=== PATIENT | male | born 2000 | race Caucasian/White ===

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

== ENCOUNTER 2025-02-01 00:17 | Inpatient (IN) | payer SELFPAY ==
[2025-02-01 00:19] VITALS: BP 127/71; PULSE 60; RESP 18; TEMP 36.9; O2SAT 100; BMI 18.1
[2025-02-01 00:54] LABS: Basophils # 0.1 10^3/uL (0.0-0.1); Basophils % 0.6 %; Eosinophils # 0.1 10^3/uL (0.0-0.8); Eosinophils % 1.6 %; Hematocrit 47.2 % (37-53); Lymphocytes # 2.1 10^3/uL (0.8-4.8); Lymphocytes % 25.8 %; Mean Corpuscular HGB Conc 34.1 g/dL (30-55); Mean Corpuscular Hemoglobin 28.8 pg (27-33); Mean Corpuscular Volume 84.3 fl (82-101); Mean Platelet Volume 11.4 fL (7.4-10.4); Monocytes # 0.6 10^3/uL (0.2-0.9); Monocytes % 6.7 %; Neutrophils # 5.34 10^3/uL (1.8-7.7); Neutrophils % 65.1 %; Nucleated Red Blood Cells % 0 %; Platelet Count 241 10^3/cmm (157-399); Red Cell Distribution Width 12.4 % (12.1-15.1); White Blood Count 8.21 10^3/uL (3.29-11.43)
[2025-02-01 00:58] LABS: Bilirubin Urine Negative (Negative); Blood Urine Negative (Negative); Glucose Urine UA Negative (Normal); Ketones Urine Negative (Negative); Leukocyte Esterase Urine Negative (Negative); Nitrate Urine Negative (Negative); Protein Urine Negative (Negative); Specific Gravity, Urine 1.017 (1.005-1.030); Urine Appearance Clear (CLEAR); Urine Color Yellow (Yellow); pH Urine 6.5 (5-7)
[2025-02-01 01:03] LABS: Add Urine Microscopic? YES; Bacteria Urine None Seen /hpf; Hyaline Casts Urine 0-4 /lpf; RBC Urine 0-2 /hpf (0-2); Squamous Epithelial Cell Urine 0-5 /hpf (0-5); WBC Urine 0-5 /hpf (0-5)
[2025-02-01 01:05] LABS: Amphetamines Screen Urine Negative (Negative); Barbiturates Screen Urine Negative (Negative); Benzodiazepines Screen Urine Negative (Negative); Cocaine Screen Urine Negative (Negative); Opiate Screen Urine Negative (Negative); PCP Screen Urine Negative (Negative); THC Screen Urine Negative (Negative)
[2025-02-01 01:09] LABS: Alanine Aminotransferase 17 U/L (0-41); Albumin Level 4.8 g/dL (3.5-5.2); Alkaline Phosphatase 76 U/L (40-130); Aspartate Amino Transferase 20 U/L (0-40); Blood Urea Nitrogen 9 mg/dL (6-20); Calcium 9.3 mg/dL (8.5-10.5); Carbon Dioxide 28 mmol/L (22-29); Chloride 105 mmol/L (98-107); Creatinine Clr Calc Pharmacy 87.8549; Glomerular Filtration Rate 83.7 mL/min (90-130); Glucose 109 mg/dL (65-115); Osmolality Calculated 297 mOsm/kg (285-295); Sodium 144 mmol/L (136-145); Total Bilirubin 0.3 mg/dL (0.15-1.2); Total Protein 7.8 g/dL (6.6-8.7)
[2025-02-01 01:10] LABS: Acetaminophen < 5.0 ug/mL (10-30); Anion Gap 15.5 (5-19); Potassium 4.5 mmol/L (3.5-5.1); Salicylate < 0.3 mg/dL (3-10)
--- NOTE | 2025-02-01 02:37 | PC.NURSE ---
This nurse spoke to Lyubov Ann, Patients Mom @[phone]. Per pt mom, pt made threats to kill himself tonight around [id number]. Pt mom reports pt has not slept in days. Pt mom states he has hx of attempted suicides and previous admissions to Psych.
--- NOTE | 2025-02-01 03:07 | PC.NURSE ---
96 Hour Involuntary Hold Patient Rights have been reviewed with the patient and questions have been answered to his satisfaction. Used Car Sales Supervisor Michael was present at bedside at the time of presentation of Rights.
--- NOTE | 2025-02-01 03:37 | W.ED.PSYCHS ---
HPI - Psych General: Chief Complaint: Psychiatric Symptoms Stated Complaint: SI/HI Time Seen by Provider: 02/01/25 00:21 History of Present Illness: Patient is a generally well-appearing 24-year-old male who was brought to the emergency department by EMS after having a confrontation with his mother and then driving off saying he was going to kill himself. He found himself at the police station who asked EMS to bring him to the emergency department. He has a history of suicidal attempts with overdose, self harm with cutting, and carries multiple diagnoses including major depressive disorder, bipolar, and also schizophrenia. He denies active hallucinations. Related Data Home Medications ?Medication ?Instructions ?Recorded ?Confirmed ibuprofen 800 mg tablet 800 mg PO TID PRN Pain (Scale 02/14/21 02/01/25 Score 4-6) Previous Rx's ?Medication ?Instructions ?Recorded fluconazole 200 mg tablet 200 mg PO DAILY 7 days #7 tabs 09/11/20 (Diflucan) bupropion HCl 150 mg 24 hr tablet, 150 mg PO QAM #30 tabs 02/14/21 extended release (Wellbutrin XL) Allergies Allergy/AdvReac Type Severity Reaction Status Date / Time No Known Allergies Allergy Verified 02/01/25 00:41 [facility] ED [facility]: Medical History ADHD (attention deficit hyperactivity disorder) has been on Adderall in the past History of suicide attempt Major depression in remission Major depression, recurrent, chronic OCD (obsessive compulsive disorder) Surgical History No history of previous surgery Social History Additional social history: Patient smokes cigarettes, marijuana and drink alcohol at a alliance party last week though indicates this is not a regular occurrence for him Household members: family Physical Exam Const: COMMON NORMALS: no acute distress, patient oriented x3 and alert HENMT: COMMON NORMALS: normocephalic and atraumatic HEAD & SCALP: normocephalic and atraumatic Eye: COMMON NORMALS: Equal, round and reactive pupils present, EOMs intact bilaterally and no scleral icterus PUPIL: Yes Equal, round and reactive pupils present Resp: COMMON NORMALS: normal respiratory effort and No retractions Cardio: COMMON NORMALS: regular rate, regular rhythm and No murmurs present (Cardio) RATE: regular rate RHYTHM: regular rhythm GI: COMMON NORMALS: Normal to inspection, nondistended, normoactive bowel sounds present, Soft to palpation and non-tender PALPATION: Yes Soft to palpation Neuro: COMMON NORMALS: patient oriented x3 SENSORIUM/ORIENTATION: Yes alert Psych: OTHER: Admits making suicidal statements earlier, denies active plans to harm himself or anyone else. Denies active hallucinations. Admits to feeling depressed and not sleeping. Skin: COMMON NORMALS: no rashes or lesions noted GENERAL SKIN EXAM: no rashes or lesions noted Course Vital Signs: Vital signs: Vital Signs Temperature 98.5 F 02/01/25 00:19 Pulse Rate 60 02/01/25 00:19 Respiratory Rate 18 02/01/25 00:19 Blood Pressure 127/71 02/01/25 00:19 Pulse Oximetry 100 02/01/25 00:19 Oxygen Delivery Me thod Room Air 02/01/25 00:19 MDM - Psych Medical Decision Making In summary, patient is a 24-year-old male with a long psychiatric history is seen for what appears to be an exacerbation of major depressive disorder. He has not slept in several days raising concern for possible manic episode. I spoke with the on-call psychiatrist who graciously agrees to admit the patient. He is medically cleared at this point. He will be taken to the psychiatric floor in stable condition. Lab Data 02/01/25 00:32 02/01/25 00:32 Laboratory Results WBC 8.21 10^3/uL (3.29-11.43) 02/01/25 00:32 RBC 5.60 10^6/uL (3.85-5.65) 02/01/25 00:32 Hgb 16.10 g/dL (11.27-16.99) 02/01/25 00:32 Hct 47.2 % (37-53) 02/01/25 00:32 MCV 84.3 fl (82-101) 02/01/25 00:32 MCH 28.8 pg (27-33) 02/01/25 00:32 MCHC 34.1 g/dL (30-55) 02/01/25 00:32 RDW 12.4 % (12.1-15.1) 02/01/25 00:32 Plt Count 241 10^3/cmm (157-399) 02/01/25 00:32 MPV 11.4 fL (7.4-10.4) H 02/01/25 00:32 Neut % (Auto) 65.1 % 02/01/25 00:32 Lymph % (Auto) 25.8 % 02/01/25 00:32 [place] % (Auto) 6.7 % 02/01/25 00:32 Eos % (Auto) 1.6 % 02/01/25 00:32 Baso % (Auto) 0.6 % 02/01/25 00:32 Neut # (Auto) 5.34 10^3/uL (1.8-7.7) 02/01/25 00:32 Lymph # (Auto) 2.1 10^3/uL (0.8-4.8) 02/01/25 00:32 [place] # (Auto) 0.6 10^3/uL (0.2-0.9) 02/01/25 00:32 Eos # (Auto) 0.1 10^3/uL (0.0-0.8) 02/01/25 00:32 Baso # (Auto) 0.1 10^3/uL (0.0-0.1) 02/01/25 00:32 Nucleated RBC % (auto) 0 % 02/01/25 00: Nucleated RBCs # 0.0 /100WBC 02/01/25 00:32 Sodium 144 mmol/L (136-145) 02/01/25 00:32 Potassium 4.5 mmol/L (3.5-5.1) 02/01/25 00:32 Chloride 105 mmol/L (98-107) 02/01/25 00:32 Carbon Dioxide 28 mmol/L (22-29) 02/01/25 00:32 Anion Gap 15.5 (5-19) 02/01/25 00:32 BUN 9 mg/dL (6-20) 02/01/25 00:32 Creatinine 1.1 mg/dL (0.7-1.2) 02/01/25 00:32 GFR Calculation 83.7 mL/min (90-130) L 02/01/25 00:32 Glucose 109 mg/dL (65-115) 02/01/25 00:32 Calculated Osmolality 297 mOsm/kg (285-295) H 02/01/25 00:32 Calcium 9.3 mg/dL (8.5-10.5) 02/01/25 00:32 Total Bilirubin 0.3 mg/dL (0.15-1.2) 02/01/25 00:32 AST 20 U/L (0-40) 02/01/25: ALT 17 U/L (0-41) 02/01/25 00: Alkaline Phosphatase 76 U/L (40-130) 02/01/25 00:32 Total Protein 7.8 g/dL (6.6-8.7) 02/01/25 00: Albumin 4.8 g/dL (3.5-5.2) 02/01/25 00: Globulin 3.0 g/dL (1.3-4.6) 02/01/25 00:32 Urine Color Yellow (Yellow) 02/01/25 00: Urine Appearance Clear (CLEAR) 02/01/25 00: Urine pH 6.5 (5-7) 02/01/25 00: Ur Specific [place] 1.017 (1.005-1.030) 02/01/25 00: Urine Protein Negative (Negative) 02/01/25 00: Urine Glucose (UA) Negative (Normal) 02/01/25 00: Urine Ketones Negative (Negative) 02/01/25 00: Urine Blood Negative (Negative) 02/01/25 00: Urine Nitrate Negative (Negative) 02/01/25 00: Urine Bilirubin Negative (Negative) 02/01/25 00: Urine Urobilinogen 1.0 mg/dL (Negative) 02/01/25 00: Ur Leukocyte Esterase Negative (Negative) 02/01/25 00: Urine RBC 0-2 /hpf (0-2) 02/01/25 00: Urine WBC 0-5 /hpf (0-5) 02/01/25 00: Ur Squamous Epith Cells 0-5 /hpf (0-5) 02/01/25 00: Amorphous Sediment Not Reportable 02/01/25 00: Urine Bacteria None seen /hpf (NONE) 02/01/25 00: Hyaline Casts 0-4 /lpf H 02/01/25 00:33 Salicylates < 0.3 mg/dL (3-10) L 02/01/25 00:32 Urine Opiates Screen Negative ng/mL (Negative) 02/01/25 00:33 Acetaminophen < 5.0 ug/mL (10-30) L 02/01/25 00:32 Ur Barbiturates Screen Negative ng/mL (Negative) 02/01/25 00:33 Ur Phencyclidine Scrn Negative ng/mL (Negative) 02/01/25 00:33 Ur Amphetamines Screen Negative ng/mL (Negative) 02/01/25 00:33 U Benzodiazepines Scrn Negative ng/mL (Negative) 02/01/25 00:33 Urine Cocaine Screen Negative ng/mL (Negative) 02/01/25 00:33 U Marijuana (THC) Screen Negative ng/mL (Negative) 02/01/25 00:33 No radiology studies performed this visit Discharge Plan Discharge Patient Disposition: Admitted As Inpatient Admit Provider: Chema Meza Clinical Impression: Major depression, recurrent, chronic, Suicidal ideation, Bipolar disorder Condition: Stable Coding Level of Care Code ED Party Plan Dealer for Delmy Whitman
[2025-02-01 03:43] VITALS: BP 130/87; PULSE 64; RESP 18; TEMP 36.4; O2SAT 100
--- NOTE | 2025-02-01 04:36 | PC.ADMIT ---
[address] Admission Note: The patient,Abiodun Ann,24 y/o, was given written information regarding hospital policies, unit procedures and contact persons. Patient's smoking status: . Vital Signs - 8 hr 02/01/25 00:19 02/01/25 03:47 Temperature 98.5 F Pulse Rate 60 Respiratory Rate 18 Blood Pressure 127/71 Pulse Oximetry 100 Oxygen Delivery Method Room Air Room Air Pt. and his mother got into an arguement and his mother was in face he pushed her away, went to police station for someone to talk to and they brought him to the ER. Pt. is placed on a 96 hr hold informed ER staff he had thoughts of self harm. Pt. stated to signee he experiences auditory and visual hallucinations, admits to smoking THC to stop the hallucinations. Pt. is calm and cooperative at this time.
[2025-02-01 06:00] VITALS: BP 130/87; PULSE 64; RESP 18; TEMP 36.4; O2SAT 100
--- NOTE | 2025-02-01 08:18 | P.NPUHP_ITS ---
Providers/Chief Complaint 2 Admitting Physician: Chema Meza MD Chief Complaint: SI/HI HPI NPU History of Present Illness Abiodun Ann is a 24 year old male who presented on 02/01/2025 to the emergency department at [facility] by EMS after he had an argument with his mother that led to the patient making a statement stating he was going to kill himself. Patient was admitted to the neuropsychiatric unit involuntarily for further evaluation and treatment. The patient had reported that he had not been feeling depressed but was merely sleep deprived. He had described that he had had argument with his mother about these 2 dogs living in the house that continued to bark and the patient had stated that he was desperately trying to go to sleep. He reports that he has not been in treatment for depression in over 4 years. Patient reported some occasional periods of sadness but reports no persistent sadness over the last few weeks. The patient had denied any manic symptoms. He denied any feelings of hopelessness or worthlessness. He had endorsed having past episodes of depression in the past but reports currently his mood has been good and that he has not been thinking about hurting himself until yesterday. He did acknowledge a history of self-injurious behavior. He reports that he has been hearing a voice in his head for years but describes it is not being excessively loud or overly distracting. He reports that it has never commanded him to cause harm to himself. He denies any current problems associated with obsessive-compulsive disorder or panic attacks. He had reported that he had a prior history of having struggles with maintaining worry. He denies any drug or alcohol use at this time. The patient's urine drug screen was negative for all substances and alcohol. He reports no problems with appetite. He reports no change in energy or concentration. He reports that he works from 6 AM to 10 PM at 2 different jobs and states that this is led him to be chronically sleep deprived. He had reported no symptoms supportive of ADHD currently or PTSD. Inpatient psychiatric history: He reports no previous inpatient psychiatric hospitalizations. Outpatient psychiatric history: The patient reports no current psychotherapy or medication management but reported an extended history of treatment through the behavioral health clinic in [facility] beginning as early as the age of 12. Previous records indicate a prior diagnosis of ADHD, generalized anxiety disorder, and major depressive disorder. Previous medication trials included Adderall XR, Prozac, Wellbutrin XL, he had reported a past history of self- injurious behavior including cutting but reports no self-injurious behavior in many years. Substance abuse history: He reports occasional alcohol use but otherwise does not endorse any drugs. He has no history of drug or alcohol treatment. Medical history: None Surgical history: None Allergies: No known drug allergies Medications: None Legal history: None history: None Family psychiatric history: There is a history of bipolar disorder and the patient's paternal grandmother. He had also reported that there was depression on both sides of the family. Patient reported that his mother had a history of obsessive-compulsive disorder. Developmental history: Previous records indicate there were complications during the patient's gestation. He was full-term and mother had allegedly smoked during the . He had no delays in milestones. He had previously been diagnosed with ADHD and was in special education classes having eventually stop schooling in the ninth grade. He did not indicate that he earned his GED. Social history: The patient's biological parents are and the patient was raised in an intact family until the age of 11. He then lived with his mother and was born in [place]. He has a half sister. He had denied any history of sexual physical or emotional abuse. He reports that he had struggled with living independently and currently lives with his mother while working 2 jobs to provide additional financial sustenance for he and his mother and stepfather. He has never been and has no children. He currently works 2 jobs. Meds NPU Home Medications ?Medication ?Instructions ?Recorded ?Confirmed ?Last Taken ?Type fluconazole 200 mg tablet 200 mg PO DAILY 7 days #7 ta bs 09/11/20 02/01/25 Unknown Rx (Diflucan) bupropion HCl 150 mg 24 hr tablet, 150 mg PO QAM #30 t abs 02/14/21 02/01/25 Unknown Rx extended release (Wellbutrin XL) ibuprofen 800 mg tablet 800 mg PO TID PRN Pain (Scal e 02/14/21 02/01/25 Unknown History Score 4-6) Allergies Allergy/AdvReac Type Severity Reaction Status Date / Time No Known Allergies Allergy Verified 02/01/25 00:41 PFSH NPU 2 PFSH: Medical History ADHD (attention deficit hyperactivity disorder) has been on Adderall in the past History of suicide attempt Major depression in remission Major depression, recurrent, chronic OCD (obsessive compulsive disorder) Surgical History No history of previous surgery Social History Additional social history: Patient smokes cigarettes, marijuana and drink alcohol at a democrat last week though indicates this is not a regular occurrence for him Household members: family Mental Status Exam 2 MSE Comments: Patient is a casually dressed -[place]ib[place] male who appeared his stated age with the somewhat disheveled appearance. He was friendly and cooperative on interview. He appeared in no acute distress. His speech was normal in regards to rate rhythm and prosody. There was no evidence of any abnormal involuntary motor movements, tics, or tremors appreciated. He was alert and oriented to person place time and situation. He did appear somewhat hyperactive. His mood was described as okay. His affect was slightly restricted in range and mood incongruent. There was no evidence of delusional thinking. He did not appear to be responding to internal stimuli although he had reported intermittent auditory hallucinations. There was no evidence of delusional thinking. He was alert and oriented x 3. His insight was limited. His judgment appeared poor. His impulse control was guarded. His intelligence appeared average. Abstraction was grossly intact his attention span appeared poor as if he was easily distracted at times. Vitals/I&O/Wt Last Vital Signs Temp 97.5 F L 02/01/25 06:00 Pulse 64 02/01/25 06:00 Resp 18 02/01/25 06:00 BP 130/87 02/01/25 06:00 Pulse Ox 100 02/01/25 06:00 O2 Del Method Room Air 02/01/25 03:47 01/31/25 02/01/25 02/01/25 22:59 06:59 14:59 Intake Total 0 / 0 Balance 0 / 0 Weight last 48 hrs Weight 58.967 kg Data NPU 02/01/25 00:32 02/01/25 00:32 A&P Assessment and plan (1) Adjustment disorder with mixed disturbance of emotions and conduct: Plan 24-year-old male previous history of ADHD and depression with no recent services endorsing no suicidal ideation although admitted after making a statement about killing himself to his mother leading to his acute hospitalization. He has requested not to be on medications at this time and is minimizing any depression at this time. #1.? Engage patient in individual milieu and group therapy. #2?? Attempt to gather collateral information #3??? Investigate auditory hallucinations . Patient refusing antidepressants at this time. #4?? TO-15 minute checks? PDMP PDMP Reviewed: Not Reviewed Involuntary Hold Information 2 Hold Status: Legal Status: 96 Hour Hold Date/Time Hold Expires: 02/07@0254 Attestations NPU 2 Medical Necessity Statement*: Inpatient hospitalization is medically necessary and deemed to be the clinically appropriate intervention at this time. Medications will be adjusted and initiated as indicated.? The patient will be hospitalized for at least 2 midnights.? The patient?s likely length of stay is 2-3 days Coding Level of Care Code Acute Code for Chg Fwd Diagnoses Adjustment disorder with mixed disturbance of emotions and conduct F43.25
[2025-02-01 14:00] VITALS: BP 111/66; PULSE 66; RESP 16; TEMP 37.1; O2SAT 100
[2025-02-01 21:15] VITALS: BP 121/76; PULSE 88; RESP 18; TEMP 36.9; O2SAT 99
[2025-02-02 06:00] VITALS: BP 117/70; PULSE 90; RESP 17; TEMP 36.6; O2SAT 100
[2025-02-02 13:57] VITALS: BP 110/72; PULSE 82; RESP 16; TEMP 37.3; O2SAT 97
--- NOTE | 2025-02-02 15:05 | P.NPUPN_ITS ---
Subjective NPU 2 Subjective: Patient presented today reporting that he is doing fine. He explained the situation that got him here focusing very much on sleep deprivation and overworked. He was downplaying any symptoms that he had prior to admission including some very concerning statements of aggression. We discussed talking to his mother to see where she was about him coming home and her thoughts about his avoiding medication. He was very much lobbying for discharge today and or soon as possible. Mental Status Exam 2 MSE Comments: Patient is a casually dressed -[place] male who appeared his stated age with the somewhat disheveled appearance. He was friendly and cooperative on interview. He appeared in no acute distress. His speech was normal in regards to rate rhythm and prosody. There was no evidence of any abnormal involuntary motor movements, tics, or tremors appreciated. He was alert and oriented to person place time and situation. He did appear somewhat hyperactive. His mood was described as okay. His affect was slightly restricted in range and mood incongruent. There was no evidence of delusional thinking. He did not appear to be responding to internal stimuli although he had reported intermittent auditory hallucinations. There was no evidence of delusional thinking. He was alert and oriented x 3. His insight was limited. His judgment appeared poor. His impulse control was guarded. His intelligence appeared average. Abstraction was grossly intact his attention span appeared poor as if he was easily distracted at times. Vitals/I&O/Wt Last Vital Signs Temp 99.1 F 02/02/25 13:57 Pulse 82 02/02/25 13:57 Resp 16 02/02/25 13:57 BP 110/72 02/02/25 13:57 Pulse Ox 97 02/02/25 13:57 O2 Del Method Room Air 02/02/25 13:57 Weight last 48 hrs Weight 58.967 kg Data NPU 02/01/25 00:32 02/01/25 00:32 A&P Assessment and plan (1) Adjustment disorder with mixed disturbance of emotions and conduct: Plan 24-year-old male previous history of ADHD and depression with no recent services endorsing no suicidal ideation although admitted after making a statement about killing himself to his mother leading to his acute hospitalization. He has requested not to be on medications at this time and is minimizing any depression at this time. 1. Continue off of medications but consider options. 2. Continue every 15 minute checks for safety. 3. Encourage individual, group and milieu therapy. 4. Obtain collateral information. We will attempt to speak with mom to see if she is really saying the things about discharge that he is reporting. 5. Will evaluate against the backdrop of the 96-hour hold. 6. Evaluate the reports of hallucinations against concerns for sleep deprivation as well as any concerns for psychotic illness. PDMP PDMP Reviewed: Not Reviewed Involuntary Hold Information 2 Hold Status: Legal Status: 96 Hour Hold Date/Time Hold Expires: 02/07/2025 0254 Attestations NPU 2 Medical Necessity Statement*: Inpatient hospitalization is medically necessary an the clinically appropriate intervention at this time. We will monitor/initiate medications and make changes as indicated.?The patient?s likely length of stay is 1-3 days Coding Level of Care Code Acute Code for Chg Fwd Diagnoses Adjustment disorder with mixed disturbance of emotions and conduct F43.25
[2025-02-02 21:05] VITALS: BP 112/79; PULSE 74; RESP 18; TEMP 37.1; O2SAT 98
[2025-02-03 06:00] VITALS: BP 105/68; PULSE 99; RESP 17; TEMP 36.6; O2SAT 95
--- NOTE | 2025-02-03 13:48 | P.NPUDS_ITS ---
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 Patient was admitted to the neuropsychiatric unit involuntarily for further evaluation and treatment. The patient had reported that he had not been feeling depressed but was merely sleep deprived. He had described that he had had argument with his mother about these 2 dogs living in the house that continued to bark and the patient had stated that he was desperately trying to go to sleep. He reports that he has not been in treatment for depression in over 4 years. Patient reported some occasional periods of sadness but reports no persistent sadness over the last few weeks. The patient had denied any manic symptoms. He denied any feelings of hopelessness or worthlessness. He had endorsed having past episodes of depression in the past but reports currently his mood has been good and that he has not been thinking about hurting himself until yesterday. He did acknowledge a history of self-injurious behavior. He r eports that he has been hearing a voice in his head for years but describes it is not being excessively loud or overly distracting. He reports that it has never commanded him to cause harm to himself. He denies any current problems associated with obsessive-compulsive disorder or panic attacks. He had reported that he had a prior history of having struggles with maintaining worry. He denies any drug or alcohol use at this time. The patient's urine drug screen was negative for all substances and alcohol. He reports no problems with appetite. He reports no change in energy or concentration. He reports that he works from 6 AM to 10 PM at 2 different jobs and states that this is led him to be chronically sleep deprived. He had reported no symptoms supportive of ADHD currently or PTSD. Inpatient psychiatric history: He reports no previous inpatient psychiatric hospitalizations. Outpatient psychiatric history: The patient reports no current psychotherapy or medication management but reported an extended history of treatment through the behavioral health clinic in [facility] beginning as early as the age of 12. Previous records indicate a prior diagnosis of ADHD, generalized anxiety disorder, and major depressive disorder. Previous medication trials included Adderall XR, Prozac, Wellbutrin XL, he had reported a past history of self- injurious behavior including cutting but reports no self-injurious behavior in many years. Substance abuse history: He reports occasional alcohol use but otherwise does not endorse any drugs. He has no history of drug or alcohol treatment. Medical history: None Surgical history: None Allergies: No known drug allergies Medications: None Legal history: None history: None Family psychiatric history: There is a history of bipolar disorder and the patient's paternal grandmother. He had also reported that there was depression on both sides of the family. Patient reported that his mother had a history of obsessive-compulsive disorder. Developmental history: Previous records indicate there were complications during the patient's gestation. He was full-term and mother had allegedly smoked during the . He had no delays in milestones. He had previously been diagnosed with ADHD and was in special education classes having eventually stop schooling in the ninth grade. He did not indicate that he earned his GED. Social history: The patient's biological parents are and the patient was raised in an intact family until the age of 11. He then lived with his mother and was born in [place]. He has a half sister. He had denied any history of sexual physical or emotional abuse. He reports that he had struggled with living independently and currently lives with his mother while working 2 jobs to provide additional financial sustenance for he and his mother and stepfather. He has never been and has no children. He currently works 2 jobs. Hospital Course Hospital Course He quickly acclimated to the individual, group and milieu therapies. He presented endorsing sleep deprivation and recent conflict with his mother that was likely related to him working a lot, not getting rest and not being involved in the outpatient services given his history. He was not interested in restarting medication and was on a 96-hour hold and so we monitored him against the backdrop of that hold and obtain collateral information. His mother who was involved in the incident that led to him coming to the hospital felt that he was seeming much better now that he had been here and slept. She was very supportive of him coming home without starting medication and may be working with an outpatient provider to initiate resources. Getting rest and participating in the treatment milieu had a positive response. He worked with the social work team to establish appropriate follow-up services to get connected to appropriate community resources. He was able to contract for safety outside of the hospital prior to discharge. During the hospitalization, patient had routine laboratory studies which were within normal limits except for few outliers. Additionally there was a general medical evaluation which was also within normal limits and revealed no new acute processes. At the time of discharge, he denied psychosis or lethality. Mood and anxiety were well managed. Patient endorsed a plan to avoid all drugs of abuse, and agreed to follow-up with the aftercare recommendations of the treatment team. Patient was evaluated and deemed to be absent credible lethality, and achieved maximum benefit from inpatient hospitalization, so he was discharged. Involuntary Hold Information Hold Status: Legal Status: 96 Hour Hold Date/Time Hold Expires: 02/07/2025 0254 Mental Status Exam MSE Comments: This is an underweight, slender -Mal[place]ian male in hospital scrubs with limited grooming but appropriate eye contact. No abnormal movements except for mild psychomotor retardation. Cooperative with exam in no acute distress. His speech was normal in regards to rate rhythm and prosody. Mood described as much better, affect appears slightly anxious. Thought process was organized. Thought content: Patient denied suicidal or homicidal ideation, there was no evidence of delusional thinking. He did not appear to be responding to internal stimuli and denied current auditory or visual hallucinations.. Attention and concentration were intact and memory appeared mostly reliable but none were formally tested. He was alert and oriented x 3. His insight was limited. His judgment appeared limited but improving. His impulse control was limited but improving. His intelligence appeared average. Abstraction was grossly intact. Discharge Data Studies Completed and Pending: Laboratory Results WBC 8.21 10^3/uL (3.2 9-11.43) 02/01/25 00:32 RBC 5.60 10^6/uL (3.8 5-5.65) 02/01/25 00:32 Hgb 16.10 g/dL (11.27 -16.99) 02/01/25 00:32 Hct 47.2 % (37-53) 02/01/25 00:32 MCV 84.3 fl (82-101) 02/01/25 00:32 MCH 28.8 pg (27-33) 02/01/25 00:32 MCHC 34.1 g/dL (30-55) 02/01/25 00:32 RDW 12.4 % (12.1-15.1 ) 02/01/25 00:32 Plt Count 241 10^3/cmm (157 -399) 02/01/25 00:32 MPV 11.4 fL (7.4-10.4 ) H 02/01/25 00:32 Neut % (Auto) 65.1 % 02/01/25 00:32 Lymph % (Auto) 25.8 % 02/01/25 00:32 [place] % (Auto) 6.7 % 02/01/25 00:32 Eos % (Auto) 1.6 % 02/01/25 00:32 Baso % (Auto) 0.6 % 02/01/25 00:32 Neut # (Auto) 5.34 10^3/uL (1.8 -7.7) 02/01/25 00:32 Lymph # (Auto) 2.1 10^3/uL (0.8- 4.8) 02/01/25 00:32 [place] # (Auto) 0.6 10^3/uL (0.2- 0.9) 02/01/25 00:32 Eos # (Auto) 0.1 10^3/uL (0.0- 0.8) 02/01/25 00:32 Baso # (Auto) 0.1 10^3/uL (0.0- 0.1) 02/01/25 00:32 Nucleated RBC % (a uto) 0 % 02/01/25 00: Nucleated RBCs # 0.0 /100WBC 02/01/25 00:32 Sodium 144 mmol/L (136-1 45) 02/01/25 00:32 Potassium 4.5 mmol/L (3.5-5 .1) 02/01/25 00:32 Chloride 105 mmol/L (98-10 7) 02/01/25 00:32 Carbon Dioxide 28 mmol/L (22-29) 02/01/25 00:32 Anion Gap 15.5 (5-19) 02/01/25 00:32 BUN 9 mg/dL (6-20) 02/01/25 00:32 Creatinine 1.1 mg/dL (0.7-1. 2) 02/01/25 00:32 GFR Calculation 83.7 mL/min (90-1 30) L 04/17/25 00:32 Glucose 109 mg/dL (65-115 ) 02/01/25 00:32 Calculated Osmolal ity 297 mOsm/kg (285- 295) H 02/01/25 00:32 Calcium 9.3 mg/dL (8.5-10 .5) 02/01/25 00: Total Bilirubin 0.3 mg/dL (0.15-1 .2) 02/01/25: AST 20 U/L (0-40) 02/01/25: ALT 17 U/L (0-41) 02/01/25 00: Alkaline Phosphata se 76 U/L (40-130) 02/01/25: Total Protein 7.8 g/dL (6.6-8.7 ) 02/01/25: Albumin 4.8 g/dL (3.5-5.2 ) 02/01/25: Globulin 3.0 g/dL (1.3-4.6 ) 02/01/25 00: Urine Color Yellow (Yellow) 02/01/25: Urine Appearance Clear (CLEAR) 02/01/25: Urine pH 6.5 (5-7) 02/01/25 00: Ur Specific Gravit y 1.017 (1.005-1.0 30) 02/01/25 00: Urine Protein Negative (Negati ve) 02/01/25 00: Urine Glucose (UA) Negative (Normal ) 02/01/25 00: Urine Ketones Negative (Negati ve) 02/01/25: Urine Blood Negative (Negati ve) 02/01/25 00: Urine Nitrate Negative (Negati ve) 02/01/25 00: Urine Bilirubin Negative (Negati ve) 02/01/25 00: Urine Urobilinogen 1.0 mg/dL (Negati ve) 02/01/25 00: Ur Leukocyte Amairani ase Negative (Negati ve) 02/01/25 00: Urine RBC 0-2 /hpf (0-2) 02/01/25 00: Urine WBC 0-5 /hpf (0-5) 02/01/25 00: Ur Squamous Epith Cells 0-5 /hpf (0-5) 02/01/25 00:33 Amorphous Sediment Not Reportable 02/01/25 00:33 Urine Bacteria None seen /hpf (N ONE) 02/01/25 00:33 Hyaline Casts 0-4 /lpf H 02/01/25 00:33 Salicylates < 0.3 mg/dL (3-10 ) L 02/01/25 00:32 Urine Opiates Scre en Negative ng/mL (N egative) 02/01/25 00:33 Acetaminophen < 5.0 ug/mL (10-3 0) L 02/01/25 00:32 Ur Barbiturates Sc reen Negative ng/mL (N egative) 02/01/25 00:33 Ur Phencyclidine S crn Negative ng/mL (N egative) 02/01/25 00:33 Ur Amphetamines Sc reen Negative ng/mL (N egative) 02/01/25 00:33 U Benzodiazepines Scrn Negative ng/mL (N egative) 02/01/25 00:33 Urine Cocaine Scre en Negative ng/mL (N egative) 02/01/25 00:33 U Marijuana (THC) Screen Negative ng/mL (N egative) 02/01/25 00:33 Vitals: Last Vital Signs Temp 97.9 F 02/03/25 06:00 Pulse 99 02/03/25 06:00 Resp 17 02/03/25 06:00 BP 105/68 02/03/25 06:00 Pulse Ox 95 02/03/25 06:00 O2 Del Method Room Air 02/02/25 13:57 Discharge Plan Discharge Patient Disposition: Home Condition: Stable Prescriptions: Discontinued fluconazole [Diflucan] 200 mg tablet 200 mg PO DAILY 7 Days Qty: 7 0RF ibuprofen 800 mg tablet 800 mg PO TID PRN (Reason: Pain (Scale Score 4-6)) bupropion HCl [Wellbutrin XL] 150 mg tablet extended release 24 hr 150 mg PO QAM Qty: 30 1RF Discharge Orders: Discharge Order (Routine); Ordered 02/03/25 Ordered By: Chema Meza Discharge Diet: Regular Discharge Activity: Resume usual activity Patient Instructions: Stress (GEN), Mood Disorders (GEN), Suicide Prevention (GEN), Opioid Safety Discharge Attestations NPU Time Spent in Discharge Care*: less than 30 min Specific Discharge Activities: Specific discharge activities: educating patient, discussing with transplant case manager/social workers/dc planners, documenting/other paperwork and evaluating patient/reviewing data Coding Level of Care Code Acute Code for Chg Fwd Diagnoses Adjustment disorder with mixed disturbance of emotions and conduct F43.25
[2025-02-03 14:43] VITALS: BP 105/68; PULSE 99; RESP 17; TEMP 36.6; O2SAT 95
== END 2025-02-03 15:45 | disposition home or self-care (01) | DRG 882 ==
LOC: ER 02:46 → NP 03:14
PROVIDERS: Admitting Provider Psychiatry & Neurology Psychiatry; Emergency Provider Student in an Organized Health Care Education/Training Program; Visit Provider Psychiatry & Neurology Psychiatry
DX: F43.25 Adjustment disorder with mixed disturbance of emotions and conduct (principal); Z91.51 Personal history of suicidal behavior; F31.9 Bipolar disorder, unspecified; F20.9 Schizophrenia, unspecified; F90.9 Attention-deficit hyperactivity disorder, unspecified type; F42.9 Obsessive-compulsive disorder, unspecified; F17.210 Nicotine dependence, cigarettes, uncomplicated; F12.90 Cannabis use, unspecified, uncomplicated
CPT/HCPCS: 36415; 80053; 80306; 80307; 81001; 85025; 97150; 97165; 99285